=== PATIENT | female | born 2000 | race Caucasian/White ===

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

== ENCOUNTER 2022-09-23 15:46 | Emergency (ER) | payer OTHER, SELFPAY ==
[2022-09-23 16:02] VITALS: BP 114/63; PULSE 89; RESP 16; TEMP 36.6; O2SAT 100
--- NOTE | 2022-09-23 17:40 | ED.GENADULT ---
HPI - General Adult General Chief complaint: Upper Respiratory Infection Stated complaint: Sinus Congestion/Cough Source: patient Mode of arrival: ambulatory Limitations: no limitations History of Present Illness HPI narrative: PATIENT PRESENTS FOR EVALUATION OF SICK SYMPTOMS FOR LAST 8 DAYS. SYMPTOMS INCLUDE SINUS CONGESTION, MUCOPURULENT DISCHARGE FROM THE NARES, COUGH, AND BILATERAL OTALGIA. SHE HAS HAD SINUS INFECTIONS IN THE PAST AND THIS FEELS SIMILAR. NO NAUSEA, VOMITING OR DIARRHEA. SEVERAL FAMILY MEMBERS RECENTLY HAD SIMILAR SYMPTOMS. SHE DOES NOT SMOKE. SHE HAS NOT TAKEN ANY MEDICATION TO ASSIST WITH HER SYMPTOMS. NO ADDITIONAL COMPLAINTS OR CONCERNS. Related Data Allergies Allergy/AdvReac Type Severity Reaction Status Date / Time Sulfa (Sulfonamide Allergy Intermediate rash Verified 09/23/22 16:17 Antibiotics) [place] Allergy Unknown Swelling Uncoded 09/23/22 16:17 Review of Systems Review of Systems: CONSTITUTIONAL: DENIES FEVER, CHILLS, OR SWEATS. EYES: DENIES VISUAL CHANGES, REDNESS, OR DISCHARGE. ENT: REPORTS SINUS CONGESTION, MUCOPURULENT DISCHARGE FROM THE NARES, AND BILATERAL OTALGIA CARDIOVASCULAR: DENIES CHEST PAIN, PALPITATIONS, OR EDEMA. RESPIRATORY:REPORTS COUGH. DENIES SOB GASTROINTESTINAL: DENIES ABDOMINAL PAIN, NAUSEA, VOMITING, OR DIARRHEA. GENITOURINARY: DENIES DYSURIA OR HEMATURIA. SKIN: DENIES RASH OR ITCHING. MUSCULOSKELETAL: DENIES BACK PAIN, JOINT PAIN, OR MYALGIA. NEUROLOGIC: DENIES HEADACHE, NUMBNESS, DIZZINESS, OR WEAKNESS. PSYCHIATRIC: DENIES ANXIETY OR DEPRESSION. PMFSH Past Medical History Medical History No pertinent past medical history Surgical History Surgical History No pertinent past surgical history Family History Family History Mother Family history non-contributory Social History Social History Substance use: never Living arrangements: with family Gender identity (if verbalized by the patient): Female Spiritual care concerns: No Exam Narrative: GENERAL: WELL-APPEARING, WELL-NOURISHED, AND IN NO ACUTE DISTRESS. HEAD: NORMOCEPHALIC, ATRAUMATIC. EYES: PERRLA AND EOMI. ENT: THERE IS THICK YELLOW DRAINAGE NOTED BILATERAL NARES. THERE IS BILATERALLY MAXILLARY AND FRONTAL SINUS TENDERNESS. OROPHARYNX WITHOUT TONSILLAR HYPERTROPHY EXUDATE OR OTHER LESIONS. BILATERAL TMS PEARLY NYE NONBULGING NECK: SUPPLE. NO ADENOPATHY OR MASSES. NO CAROTID BRUITS OR JVD CHEST: CLEAR TO AUSCULTATION. NO RESPIRATORY DISTRESS. NO WHEEZES RALES OR RHONCHI HEART: REGULAR RATE AND RHYTHM. NO MURMUR HEARD. NORMAL PERIPHERAL PULSES. ABDOMEN: SOFT, NONTENDER, NONDISTENDED, NORMAL ACTIVE BOWEL SOUNDS. EXTREMITIES: NORMAL RANGE OF MOTION. NO EDEMA. SKIN: WARM, DRY, NO RASH. NEURO: NO FOCAL DEFICITS. ALERT AND ORIENTED X3. PSYCH: NORMAL MOOD AND AFFECT. Course Course Emergency Course: THIS IS A 22-YEAR-OLD FEMALE WHO PRESENTED FOR EVALUATION OF SICK SYMPTOMS. SHE MEETS CRITERIA FOR ABRS BASED ON DURATION OF TIME REPORTS SHE HAS BEEN SYMPTOMATIC AND QUALITY OF HER NASAL DISCHARGE. WILL TREAT WITH AUGMENTIN. INCREASE HYDRATION. [id number] AGENTS FOR SYMPTOM MANAGEMENT. FOLLOW UP WITH PRIMARY PROVIDER. GO TO THE ER FOR WORSENING SYMPTOMS. PATIENT IN AGREEMENT PLAN OF CARE. Level of Care: Express Care Visit Vital Signs Vital signs: Vital Signs Temperature 36.6 C 09/23/22 16:02 Pulse Rate 89 09/23/22 16:02 Respiratory Rate 16 09/23/22 16:02 Blood Pressure 114/63 09/23/22 16:02 Pulse Oximetry 100 09/23/22 16:02 Oxygen Delivery Room Air 09/23/22 16:02 Temperature 36.6 C 09/23/22 16:02 Pulse Rate 89 09/23/22 16:02 Respiratory Rate 16 09/23/22 16:02 Blood Pressure 114/63 09/23/22 16:02 Pulse
== END 2022-09-23 17:31 | disposition home or self-care (01) ==
PROVIDERS: Emergency Provider Nurse Practitioner; PCP Family Medicine
DX: J01.90 Acute sinusitis, unspecified (principal)
CPT/HCPCS: 99213; G0463